=== PATIENT | female | born 1995 | race American Indian/Alaskan Native ===

== ENCOUNTER 2020-05-16 19:19 | Inpatient (IN) | payer MEDICAID ==
[2020-05-16] MEDS ORDERED: ONDANSETRON 4 MG/2 ML INJ IV PRN ×2 (20:00→23:48)
[2020-05-16] MEDS ORDERED: ePHEDrine SULFATE 50 MG/1 ML INJ IV PRN ×2 (20:00→22:00)
[2020-05-16] MEDS ORDERED: AMPICILLIN/NS 2 GM/100 ML 2 GM/100 ML BAG IV ONE (20:00)
[2020-05-16] MEDS ORDERED: BUTORPHANOL 2 MG/1 ML INJ IV PRN (20:00)
[2020-05-16] MEDS ORDERED: OXYTOCIN DRIP 30 UNITS/500 ML BAG IV SCH ×2 (20:00→23:45)
[2020-05-16] MEDS ORDERED: OXYTOCIN 10 UNIT/1 ML INJ IM PRN (20:00)
[2020-05-16] MEDS ORDERED: MINERAL OIL 30 ML ORAL LIQD PO PRN (20:00)
[2020-05-16] MEDS ORDERED: LOPERAMIDE 2 MG CAP PO PRN (20:00)
[2020-05-16] MEDS ORDERED: fentaNYL 100 MCG/2 ML INJ IV PRN (20:00)
[2020-05-16] MEDS ORDERED: miSOPROStol 200 MCG TAB PR PRN (20:00)
[2020-05-16] MEDS ORDERED: CARBOPROST TROMETHAMINE 250 MCG/1 ML INJ IM PRN (20:00)
[2020-05-16] MEDS ORDERED: METHYLERGONOVINE MALEATE 0.2 MG/ML VIAL IM PRN (20:00)
[2020-05-16] MEDS ORDERED: TERBUTALINE 1 MG/1 ML INJ SUB-Q PRN (20:00)
[2020-05-16] MEDS ORDERED: LIDOCAINE (2%) 20 MG/1 ML VIAL 20 ML MDV INFILTRATI ONE (20:00)
[2020-05-16] MEDS ORDERED: LACTATED RINGERS 500 ML IV ONE (20:32)
[2020-05-16] MEDS: LACTATED RINGERS 1,000 ML IV SCH ×2 (20:50→21:56)
[2020-05-16 20:58] LABS: Hematocrit 33.6 % (30.3-42.9); Mean Corpuscular HGB Conc 33 % (30-34); Mean Corpuscular Volume 75 fl (79-97); Platelet Count 320 K/mm3 (140-440); Red Blood Count 4.47 M/mm3 (3.65-5.03); Red Cell Distribution Width 15.8 % (13.2-15.2)
[2020-05-16] MEDS ORDERED: BETAMET ACET/BETAMET NA PH 6 MG/ML INJ 5 ML MDV IM SCH (21:00)
--- NOTE | 2020-05-16 21:47 | Anesthesia Consultation ---
Anesthesia Consult and Med Hx Date of service: 05/16/20 - Airway Anesthetic Teeth Evaluation: Good ROM Head & Neck: Adequate Mental/Hyoid Distance: Adequate Mallampati Class: Class II Intubation Access Assessment: Probably Good - Pulmonary Exam CTA: Yes - Cardiac Exam Cardiac Exam: RRR - Pre-Operative Health Status ASA Pre-Surgery Classification: ASA2 Proposed Anesthetic Plan: Epidural - Pulmonary Hx Smoking: Yes Hx Asthma: No Hx Respiratory Symptoms: No SOB: No COPD: No Home Oxygen Therapy: No Hx Pneumonia: No Hx Sleep Apnea: No - Cardiovascular System Hx Hypertension: No Hx Coronary Artery Disease: No Hx Heart Attack/AMI: No Hx Angina: No Hx Percutaneous Transluminal Coronary Angioplasty (PTCA): No Hx Cardia Arrhythmia: No Hx Pacemaker: No Hx Internal Defibrillator: No Hx Valvular Heart Disease: No Hx Heart Murmur: No Hx Peripheral Vascular Disease: No - Central Nervous System Hx Neuromuscular Disorder: No Hx Seizures: No CVA: No Hx Back Pain: No Hx Psychiatric Problems: No - Gastrointestinal Hx Ulcer: No Hx Gastroesophageal Reflux Disease: No - Endocrine Hx Renal Disease: No Hx End Stage Renal Disease: No Hx Cirrhosis: No Hx Liver Disease: No Hx Insulin Dependent Diabetes: No Hx Non-Insulin Dependent Diabetes: No Hx Thyroid Disease: No Hx Hypothyroidism: No Hx Hyperthyroidism: No - Hematic Hx Anemia: No Hx Sickle Cell Disease: No - Other Systems Hx Alcohol Use: No Hx Substance Use: No Hx Cancer: No Hx Obesity: No
--- NOTE | 2020-05-16 21:49 | Progress Note ---
Labor Epidural - Labor Epidural Start Time: 21:30 Stop Time: 21:37 Performed by:: MARGRET MCNEIL Procedure: Patient is requesting a laboring epidural for laboring pain. Patient IDed, H&P reviewed, all questions and concerns were answered, and consent was signed. Timeout was performed at bedside. Patient in sitting position. Sterile prep and drape was performed. [3] ml of 1% lidocaine skin wheal at L[3]- L [4]. 18- gauge Tuohy epidural needle was advanced to loss of resistance with saline technique. Negative CSF negative blood. Epidural catheter advanced to [12] centimeters. [NEGATIVE] Aspiration [NEGATIVE] test dose. Sterile dressing applied. Patient tolerated procedure.
[2020-05-16] MEDS ORDERED: fentaNYL-BUPIV 2 MCG/ML-0.125% 200 MCG/100 ML BAG EPIDURAL ONE (21:52)
[2020-05-16] MEDS ORDERED: NALOXONE 2 MG/2 ML INJ IV PRN (22:00)
[2020-05-16] MEDS ORDERED: fentaNYL-BUPIV 2 MCG/ML-0.125% 200 MCG/100 ML BAG EPIDURAL SCH (22:00)
--- NOTE | 2020-05-16 22:03 | History and Physical Report ---
History of Present Illness Date of examination: 05/16/20 Date of admission: 05/16/20 20:00 History of present illness: PT is a walk in pt, at 35w 3 days by a single U/S pt notes that she had earlier in the preg that gave her an EDC of 06/17 (per her account). PT cannot recall LMP and did not have any care. PT presents today s/p SROM at home and is having ctxs. 3 cm on admission. PT with a h/o a delivery in the past. Past History Past Medical History: no pertinent history Past Surgical History: no surgical history SYSTEM SUPPORT ANALYST History: chlamydia Social history: smoking, other (no care) - Obstetrical History Expected Date of Delivery: 06/17/20 Actual Gestation: 35 Week(s) 3 Day(s) : 4 Hx # Term Pregnancies: 0 Number of Pregnancies: 1 Spontaneous Abortions: 1 Induced : 1 Number of Living Children: 1 Medications and Allergies Allergies Allergy/AdvReac Type Severity Reaction Status Date / Time No Known Allergies Allergy Unverified 05/16/20 19:32 Home Medications Medication Instructions Recorded Confirmed Last Taken Type No Known Home Medications [No 05/16/20 05/16/20 Unknown History Reported Home Medications] Active Meds: Active Medications Betamethasone Acet/Betameth SodPhos (Betamet Acet/Betamet Na Ph 6 Mg/Ml Inj 5 Ml Mdv) 12 mg IM Q24H ITALO Stop: 05/17/20 21:01 Last Admin: 05/16/20 20:56 Dose: 12 mg Documented by: Butorphanol Tartrate (Butorphanol 2 Mg/1 Ml Inj) 2 mg IV Q2H PRN PRN Reason: Pain , Severe (7-10) Carboprost Tromethamine (Carboprost Tromethamine 250 Mcg/1 Ml Inj) 250 mcg IM ONCE PRN PRN Reason: Uterine Bleeding Ephedrine Sulfate (Ephedrine Sulfate 50 Mg/1 Ml Inj) 10 mg IV Q2M PRN PRN Reason: Hypotension Ephedrine Sulfate (Ephedrine Sulfate 50 Mg/1 Ml Inj) 10 mg IV Q2M PRN PRN Reason: Hypotension Fentanyl (Fentanyl 100 Mcg/2 Ml Inj) 100 mcg IV Q2H PRN PRN Reason: Pain,Severe (7-10) LABOR PAIN Last Admin: 05/16/20 20:54 Dose: 100 mcg Documented by: Lactated Ringer's (Lactated Ringers) 1,000 mls @ 125 mls/hr IV DIRECT ITALO Last Admin: 05/16/20 21:56 Dose: 125 mls/hr Documented by: Oxytocin/Sodium Chloride (Pitocin/Ns 30 Unit/500ml) 30 units in 500 mls @ 40 mls/hr IV TITR ITALO; Protocol Ampicillin Sodium (Ampicillin/Ns 1 Gm/50 Ml) 1 gm in 50 mls @ 100 mls/hr IV Q4H ITALO; Protocol Fentanyl/Bupivacaine/Sodium Chlor (Fentanyl-Bupiv 2 Mcg/Ml-0.125%) 200 mcg in 100 mls @ 12 mls/hr EPIDURAL TITR ITALO; Protocol Loperamide HCl (Loperamide 2 Mg Cap) 2 mg PO ONCE PRN PRN Reason: give with Hemabate Methylergonovine Maleate (Methylergonovine Maleate 0.2 Mg/Ml Vial) 0.2 mg IM ONCE PRN PRN Reason: Uterine Bleeding Mineral Oil (Mineral Oil 30 Ml Oral Liqd) 30 ml PO QHS PRN PRN Reason: Constipation Misoprostol (Misoprostol 200 Mcg Tab) 800 mcg NH ONCE PRN PRN Reason: Uterine Bleeding Naloxone HCl (Naloxone 2 Mg/2 Ml Inj) 0.2 mg IV Q5M PRN PRN Reason: Respiratory sedation Ondansetron HCl (Ondansetron 4 Mg/2 Ml Inj) 4 mg IV Q8H PRN PRN Reason: Nausea And Vomiting Oxytocin (Oxytocin 10 Unit/1 Ml Inj) 10 unit IM ONCE PRN PRN Reason: Uterine Bleeding Terbutaline Sulfate (Terbutaline 1 Mg/1 Ml Inj) 0.25 mg SUB-Q ONCE PRN PRN Reason: Hyperstimulation/Hypertonicity Review of Systems All systems: negative (except HPI) - Vital Signs Vital signs: Vital Signs Pulse Pulse Ox 79 73 L 05/16/20 19:50 05/16/20 19:50 Temp Pulse Resp BP Pulse Ox 98.7 F 63 18 132/76 100 05/16/20 21:01 05/16/20 22:01 05/16/20 21:01 05/16/20 22:01 05/16/20 21:59 - Obstetrical FHR: category 1 Uterine Contraction Frequency (min): 2-3 Uterine Contraction Pattern: Regular Results Result Diagrams: 05/16/20 20:20 Abnormal lab results 05/16/20 Range/Units 20:20 MCV 75 L (79-97) fl MCH 25 L (28-32) pg RDW 15.8 H (13.2-15.2) % All other labs normal. Assessment and Plan - Patient Problems (1) premature rupture of membranes (PPROM) with onset of labor after 24 hours of rupture in third trimester, antepartum Current Visit: Yes Status: Acute Plan to address problem: PT admitted with PPROM. Awaiting U/S to confirm dating. Abx started for unknown GBS. PT received epidural. Check full labs. Betamethasone x 1 given.
[2020-05-16] MEDS ORDERED: LANOLIN/ZINC/DIMETHICONE (LANSINOH) 7 GM TP PRN ×2 (23:48)
[2020-05-16] MEDS ORDERED: PROMETHAZINE 25 MG TAB PO PRN (23:48)
[2020-05-16] MEDS ORDERED: oxyCODONE /ACETAMINOPHEN 5-325MG TAB PO PRN (23:48)
[2020-05-16] MEDS ORDERED: WITCH HAZEL/ GLYCERIN PAD TP PRN (23:48)
[2020-05-16] MEDS ORDERED: BENZOCAINE/MENTHOL 20/0.5% TOP SPRAY 56 GM TP PRN (23:48)
[2020-05-16] MEDS ORDERED: MAGNESIUM HYDROXIDE (MOM) ORAL LIQD UDC PO PRN (23:48)
[2020-05-16] MEDS ORDERED: diphenhydrAMINE 25 MG CAP PO PRN (23:48)
[2020-05-16] MEDS ORDERED: PROMETHAZINE 25 MG RECT SUPP PR PRN (23:48)
--- NOTE | 2020-05-16 23:48 | Procedure Note ---
OB Delivery Note - Delivery Date of Delivery: 05/16/20 Surgeon: TRESA PALUMBO Estimated blood loss: 200cc - Vaginal Delivery presentation: vertex Delivery position: OA Delivery induction: none Delivery monitor: external FHT Route of delivery: Delivery placenta: spontaneous Delivery cord: 3 umbilical vessels Episiotomy: none Delivery laceration: 1st degree Delivery repair: vicryl Anesthesia: epidural Delivery comments: Anterior shoulder delivered without difficulty. Baby bulb suctioned at the perineum and again after delivery. Delayed cord clamping and cut. Baby to the warmer. Placenta delivered spontaneously and was delivered in its entirety. First-degree laceration repaired with 2-0 Vicryl. Good hemostasis throughout. Mother and baby stable. - A at 1 minute: 8 at 5 minutes: 9 Gender: Male
--- NOTE | 2020-05-16 23:53 | Ultrasound Report ---
ULTRASOUND OBSTETRIC INDICATION / CLINICAL INFORMATION: PRESENTATION GESTATIONAL AGE. Clinical Gestational Age (GA): TECHNIQUE: Transabdominal. COMPARISON: OB ultrasound 12/23/2019 FINDINGS: There is a single intrauterine . Biparietal Diameter = 8.2 cm = 32 weeks, 5 day(s). Head Circumference = 29.8 cm = 33 weeks, 0 day(s). Abdominal Circumference = 29.7 cm = 33 weeks, 5 day(s). Femur Length = 6.3 cm = 32 weeks, 3 day(s). Average Ultrasound Age (AUA) = 33 weeks, 0 day(s). Heart Rate: 120 beats per minute. Estimated Weight in grams (if calculated): 2130 +/- 315 Estimated Weight Growth Percentile (if calculated): Position: cephalic. Amniotic Fluid Volume: Visually decreased Amniotic Fluid Index (NITIN) in cm (if calculated): . Maternal Adnexa: No significant abnormality. IMPRESSION: 1. Single, living intrauterine with estimated sonographic age of 33 weeks, 0 day(s). 2. Oligohydramnios Signer Name: Fei Gaines MD Signed: 05/16/2020 11:49 PM Workstation Name: [id number]
[2020-05-17] MEDS ORDERED: AMPICILLIN/NS 1 GM/50 ML 1 GM/50 ML BAG IV SCH (00:02)
--- NOTE | 2020-05-17 05:44 | Post Anesthesia Evaluation ---
- Post Anesthesia Evaluation Patient Participated: Yes Airway Patent: Yes Stable Respiratory Function: Yes Nausea/Vomiting: No Temp > 96.8F: Yes Pain Manageable: Yes Adequeate Hydration: Yes Anesthesia Complications: No Block Receding Appropriately: Yes Patient on Ventilator: No
[2020-05-17] MEDS: IBUPROFEN 600 MG TAB PO SCH ×3 (10:04→18:05)
[2020-05-17] MEDS ORDERED: medroxyPROGESTERone ACETATE 150 MG/ML SYRINGE IM NR (12:07)
--- NOTE | 2020-05-17 12:09 | Progress Note ---
Assessment and Plan A: PP Day #1 Stable P: Follow Routine Orders Depo Provera prior to discharge D/C Home in the AM RTO in 6 Weeks Subjective - Subjective Date of service: 05/17/20 Patient reports: appetite normal, voiding normally, pain well controlled, flatus, bowel movement, ambulating normally : doing well, bottle feeding (and ) Objective - Vital Signs Latest vital signs: Vital Signs Temp Pulse Resp BP BP BP Pulse Ox 05/17/20 08:10 98.6 F 79 18 135/78 98 05/17/20 03:30 98.2 F 72 14 131/69 97 05/17/20 02:07 28 L 86 05/17/20 02:05 67 125/66 05/17/20 02:03 70 100 05/17/20 01:58 67 100 05/17/20 01:53 71 99 05/17/20 01:51 73 122/66 05/17/20 01:48 74 99 05/17/20 01:43 72 99 05/17/20 01:38 71 100 05/17/20 01:36 62 119/57 05/17/20 01:33 63 100 05/17/20 01:28 66 100 05/17/20 01:14 79 100 05/17/20 01:09 79 100 05/17/20 01:06 77 110/58 05/17/20 01:04 71 100 05/17/20 00:59 71 100 05/17/20 00:54 68 100 05/17/20 00:50 69 131/64 05/17/20 00:49 76 100 05/17/20 00:44 66 100 05/17/20 00:39 73 100 05/17/20 00:36 68 129/63 05/17/20 00:34 74 99 05/17/20 00:29 79 100 05/17/20 00:24 76 100 05/17/20 00:20 71 132/77 05/17/20 00:19 75 100 05/17/20 00:14 77 98 05/17/20 00:09 70 100 05/17/20 00:06 75 136/79 05/17/20 00:04 69 100 05/16/20 23:59 98.3 F 70 18 136/79 100 05/16/20 23:54 80 100 05/16/20 23:49 85 100 05/16/20 23:44 74 100 05/16/20 23:40 74 136/76 05/16/20 23:39 96 H 100 05/16/20 23:37 64 86 05/16/20 23:34 75 100 05/16/20 23:29 63 100 05/16/20 23:24 93 H 100 05/16/20 23:19 65 100 05/16/20 23:14 87 100 05/16/20 23:10 64 121/67 05/16/20 23:09 64 100 05/16/20 23:04 60 100 05/16/20 22:59 70 100 05/16/20 22:54 62 100 05/16/20 22:49 74 100 05/16/20 22:44 69 100 05/16/20 22:42 67 120/59 05/16/20 22:39 65 100 05/16/20 22:34 63 100 05/16/20 22:29 66 100 05/16/20 22:24 75 100 05/16/20 22:19 74 100 05/16/20 22:14 68 100 05/16/20 22:10 18 132/76 05/16/20 22:09 62 100 05/16/20 22:04 62 100 05/16/20 22:01 63 132/76 05/16/20 21:59 79 100 05/16/20 21:54 73 18 99 05/16/20 21:50 65 128/65 05/16/20 21:49 71 100 05/16/20 21:44 68 100 05/16/20 21:39 75 100 05/16/20 21:34 75 100 05/16/20 21:29 90 100 05/16/20 21:24 71 99 05/16/20 21:19 88 97 05/16/20 21:14 71 99 05/16/20 21:09 79 99 03 21:04 102 H 100 05/16/20 21:02 74 125/66 05/16/20 21:01 98.7 F 74 18 125/66 98 05/16/20 20:59 78 99 21 20:57 59 L 89 05/16/20 20:54 72 18 100 05/16/20 20:22 87 100 05/16/20 20:17 103 H 99 03/21/21 20:12 91 H 99 05/16/20 20:07 92 H 99 05/16/20 20:02 90 100 05/16/20 19:57 88 99 05/16/20 19:52 98.8 F 90 19 137/75 100 05/16/20 19:50 79 73 L Intake and Output 05/16/20 05/17/20 05/17/20 22:59 06:59 14:59 Intake Total 137.5 480 Output Total 850 Balance 137.5 -370 Intake: IV 137.5 Lactated Ringers 1,000 ml 137.5 @ 125 mls/hr IV DIRECT ITALO Rx#:[id number] Intake, Free Water 480 Output: Urine 850 Void 850 Other: Total, Output Amount 850 Weight 81.193 kg Estimated Blood Loss 200 - Exam Breasts: Present: normal Cardiovascular: Present: Regular rate Lungs: Present: Clear to auscultation, Normal air movement Abdomen: Present: normal appearance, soft, normal bowel sounds Uterus: Present: normal, firm, fundal height above umbilicus Extremities: Present: normal - Labs Labs: Abnormal lab results 05/16/20 Range/Units 20:20 MCV 75 L (79-97) fl MCH 25 L (28-32) pg RDW 15.8 H (13.2-15.2) %
--- NOTE | 2020-05-17 12:12 | Discharge Summary ---
Providers - Providers Date of Admission: 05/16/20 20:00 Date of discharge: 05/18/20 Attending physician: TRESA PALUMBO 05/16/20 Consult to Case Management [CONS] Routine Services Needed at Discharge: [employer] Notified:: case management Additional Physician Instructions: Pt had no care Primary care physician: RESIDENTIAL CARE OFFICER Hospitalization Reason for admission: rupture of membranes Delivery: Episiotomy: none Laceration: 1st degree Other procedures: none complications: none Discharge diagnosis: IUP at term delivered baby: male Condition at discharge: Good Disposition: DC-01 TO HOME OR SELFCARE Plan - Provider Discharge Summary Activity: routine, no sex for 6 weeks, no heavy lifting 4 weeks, no strenuous exercise Diet: routine Instructions: routine Additional instructions: [] Smoking cessation referral if applicable(refer to patient education folder for contact #) [] Refer to [facility] Booklet Call your doctor immediately for: * Fever > 100.5 * Heavy vaginal bleeding ( >1 pad per hour) * Severe persistent headache * Shortness of breath * Reddened, hot, painful area to leg or breast * Drainage or odor from incision. * Keep incision clean and dry at all times and follow doctor's instructions regarding bathing/showering - Follow up plan Follow up: TRESA PALUMBO MD [Staff Physician] - 6 Weeks
[2020-05-17 13:18] LABS: Amphetamine Screen,Urine Negative; Benzodiazepines Screen,Urine Negative; Cocaine Screen,Urine Negative; Methadone Screen,Urine Negative; Opiate Screen,Urine Negative
[2020-05-17 13:46] LABS: Hemoglobin 10.9 gm/dl (10.1-14.3)
[2020-05-17 13:52] LABS: Hematocrit 33.1 % (30.3-42.9)
[2020-05-17 14:30] LABS: Cannabinoid Screen,Urine PRESUMPTIVE POSITIVE
[2020-05-18] MEDS: IBUPROFEN 600 MG TAB PO SCH ×4 (00:48→18:26)
[2020-05-18 18:24] VITALS: BP 134/85
== END 2020-05-18 18:50 | disposition home or self-care (01) | DRG 775 ==
LOC: TRG 19:19 → APU 19:29 → OBSVTOIN 20:00 → LD 20:00 → TRG 20:00 → OB 05-17 02:45
PROVIDERS: ADMIT Obstetrics & Gynecology; ATTEND Obstetrics & Gynecology
PROC: 10E0XZZ Delivery of Products of Conception, External Approach (ICD-10-PCS; principal; 2020-05-16)
PROC: 0HQ9XZZ Repair Perineum Skin, External Approach (ICD-10-PCS; 2020-05-16)
PROC: 3E0R3BZ Introduction of Anesthetic Agent into Spinal Canal, Percutaneous Approach (ICD-10-PCS; 2020-05-16)
PROC: 00HU33Z Insertion of Infusion Device into Spinal Canal, Percutaneous Approach (ICD-10-PCS; 2020-05-16)
DX: O42.113 Preterm premature rupture of membranes, onset of labor more than 24 hours following rupture, third trimester (principal); O60.14X0 Preterm labor third trimester with preterm delivery third trimester, not applicable or unspecified; O70.0 First degree perineal laceration during delivery; Z20.822 Contact with and (suspected) exposure to COVID-19; Z3A.35 35 weeks gestation of pregnancy; Z37.0 Single live birth
CPT/HCPCS: 36415; 59025; 76816; 80307; 85014; 85018; 85027; 86592; 86706; 86762; 86850; 86900; 86901; 87806; G0378; J0290; J0702; J2590; J3010; J7120; U0003